=== PATIENT | female | born 1990 | race Caucasian/White ===

== ENCOUNTER 2016-11-20 21:10 | Emergency (ER) | payer MEDICAID ==
[~2016-11-20] VITALS: Ht 172.7 cm; Wt 77.0 kg
[~2016-11-20 21:10] MED LIST: DICL75 PO; HYDR-3533 PO
[2016-11-20 21:25] VITALS: BP 118/74; PULSE 77; RESP 20; TEMP 98.4; O2SAT 98
[2016-11-20] MEDS ORDERED: POLY10O EACH EYE (21:34)
--- NOTE | 2016-11-20 21:41 | PD ---
HPI Chief Complaint: Eye Problems/Injury Time Seen by Provider: 21:37 Travel History International Travel<30 days: No Contact w/Intl Traveler<30days: No Traveled to known affect area: No History of Present Illness HPI 26-year-old white female presents emergency Department with complaints of eye pain, redness and discharge over the last few days. She states that she feels that this may be related to a hair dye she had put in her hair the day before. She states that she has foreign body sensation more so in the left eye than the right. She has mucousy drainage coming from her eyes. She states her eyes crossed closed when she sleeps. They've been pruritic in nature. Swollen. Slightly blurry. She denies any photophobia area no diplopia. No glasses or contacts. No trauma. No recent illness. PFSH Past Medical History Medical History: Denies Significant Hx Diminished Hearing: No Tetanus Vaccination: < 5 Years ?: Not LMP: last month Past Surgical History Surgical History: No Previous Surgery Social History Alcohol Use: No Tobacco Use: Yes Substance Use: No Allergies-Medications (Allergen,Severity, Reaction): Coded Allergies: No Known Allergies (Unverified , 11/20/16) Reported Meds & Prescriptions Reported Meds & Active Scripts Active Polytrim Opth Drops (Polymyxin/Trimethoprim Sulfate) 10,000-0.1 Unit/Ml-% Soln 1 Drop EACH EYE 4-6HR 7 Days Review of Systems Except as stated in HPI: all other systems reviewed are Neg General / Constitutional: No: Fever, Chills Eyes: Positive: Drainage, Redness, Foreign Body Sensation, Pain, Tearing, Visual changes, No: Diploplia, Photophobia HENT: Positive: Congestion, No: Neck Stiffness, Dental Difficulties, Ear Discharge, Earache Physical Exam Narrative GENERAL: Well-developed, well-nourished in no acute distress. Nontoxic appearing. HEAD: Normocephalic, atraumatic. EYES: Pupils equal round and reactive. Extraocular motions intact. No scleral icterus. Bilateral injection with mucoid drainage. The left is greater than the right. She has mild edema of the lids. Ophthaine is instilled in both eyes. Lids are flipped and no foreign body seen. Fluorescein stain is negative for corneal abrasion. ENT: TMs clear without erythema. The external auditory canals clear. Nose: clear . Posterior pharynx is pink and moist. No tonsillar edema or exudate. Uvula midline. Airway patent. NECK: Trachea midline.Supple, nontender, moves head freely. No central bony tenderness or spasm. CARDIOVASCULAR: Regular rate and rhythm without murmurs, gallops, or rubs. RESPIRATORY: Clear to auscultation. Breath sounds equal bilaterally. No wheezes , rales, or rhonchi. GASTROINTESTINAL: Abdomen soft, non-tender, nondistended. No hepato-splenomegaly , or palpable masses. No guarding. EXTREMITIES: No clubbing, cyanosis, or edema. No joint tenderness, effusion, or edema noted. BACK: Nontender without deformity or crepitance. No flank tenderness. Data Data Last Documented VS Vital Signs Date Time Temp Pulse Resp B/P Pulse Ox O2 Delivery O2 Flow Rate FiO2 11/20/16 21:25 98.4 77 20 118/74 98 Room Air Orders Polymyxin/Trimethop Opht Soln (Polytrim (11/20/16 21:45) Diphenhydramine (Benadryl) (11/20/16 21:45) MDM Medical Decision Making Medical Screen Exam Complete: Yes Emergency Medical Condition: Yes Medical Record Reviewed: Yes Differential Diagnosis MDM: High Differential diagnoses: Acute conjunctivitis (bacterial, viral, allergic, traumatic), glaucoma, iritis, traumatic globe injury, foreign body, corneal abrasion, corneal ulcer, diabetic retinopathy, photokeratitis, herpes keratitis , CMV retinitis Narrative Course This is conjunctivitis. Polytrim is instilled in both eyes. Benadryl 50 g by mouth. Diagnosis Primary Impression: Conjunctivitis Qualified Code: H10.33 - Acute conjunctivitis of both eyes, unspecified acute conjunctivitis type Patient Instructions: General Instructions Additional Instructions: Rest. Wash eyelashes with baby shampoo 3 times daily. Warm compresses. Polytrim ophthalmic drops. 50 mg of Benadryl every 6 hours. Followup with an eye doctor in one week. Follow-up with a medical doctor one week. Return to the ER if any problems. Med/Other Pt SpecificInfo: Prescription(s) given Scripts Polymyxin B-Trimethoprim Opth Drops (Polytrim Opth Drops)10,000-0.1 Unit/Ml-% Soln1 Drop EACH EYE 4-6HR 7 Days Prov:Tess Oh MD 11/20/16 Disposition: 01 DISCHARGE HOME Condition: Stable Eduar Mcdowell Nov 20, 2016 21:41
[2016-11-20] MEDS ORDERED: POLYMYXIN/TRIMETHOPRIM OPHT SOLN 10 ML BTL EACH EYE ONE (21:45)
[2016-11-20] MEDS ORDERED: diphenhydrAMINE HCL 50 MG CAP PO ONE (21:45)
== END 2016-11-20 22:11 | disposition home or self-care (01) ==
LOC: NEPK 21:10
DX: H10.9 Unspecified conjunctivitis (principal); Z72.0 Tobacco use
CPT/HCPCS: 99283; Q0163